=== PATIENT | female | born 1995 | race Caucasian/White ===

== ENCOUNTER 2016-12-11 08:44 | Emergency (ER) | payer SELFPAY ==
[~2016-12-11] VITALS: Ht 167.6 cm; Wt 77.0 kg
[~2016-12-11 08:44] MED LIST: AMOX500T PO; HYDR-3533 PO
[2016-12-11 08:45] VITALS: BP 120/74; PULSE 84; RESP 16; TEMP 98.2; O2SAT 96
[2016-12-11] MEDS ORDERED: SODIUM CHLOR 0.9% 1000 ML INJ 1,000 ML IV SCH (08:54)
[2016-12-11] MEDS ORDERED: ONDANSETRON HCL 4 MG/2 ML VIAL IVP ONE (09:00)
[2016-12-11] MEDS ORDERED: SODIUM CHLORIDE 0.9% FLUSH 5 ML FLUSH IVF PRN (09:00)
--- NOTE | 2016-12-11 09:06 | PD ---
HPI Chief Complaint: GI Complaint Time Seen by Provider: 09:03 Travel History International Travel<30 days: No Contact w/Intl Traveler<30days: No Traveled to known affect area: No History of Present Illness HPI 21-year-old female with history of no significant past medical issues, presents to the ER today with several days history of nausea, vomiting, abdominal discomfort, diarrhea, and hematuria. She denies any unusual vaginal discharge, fevers, or any other symptoms. She states that her boyfriend has similar symptoms as well. Patient has been taking Cipro which was left over from her boyfriend for 2 doses already. Modifying Factors: None Associated Signs & Symptoms: Nausea, vomiting, diarrhea, hematuria Risk Factors: None PFSH Past Medical History Medical History: Denies Significant Hx Respiratory: Yes Tetanus Vaccination: Unknown Influenza Vaccination: No ?: Not LMP: 11/08/17 Past Surgical History Surgical History: No Previous Surgery Social History Alcohol Use: Yes (socially) Tobacco Use: No Substance Use: No Allergies-Medications (Allergen,Severity, Reaction): Coded Allergies: No Known Allergies (Unverified , 12/11/16) Reported Meds & Prescriptions Reported Meds & Active Scripts Active Review of Systems Except as stated in HPI: all other systems reviewed are Neg Physical Exam Narrative GENERAL: Well-nourished, well-developed young female patient in no acute distress. SKIN: Warm and dry. HEAD: Normocephalic. EYES: No scleral icterus. No injection or drainage. NECK: Supple, trachea midline. CARDIOVASCULAR: Regular rate and rhythm without murmurs, gallops, or rubs. RESPIRATORY: Breath sounds equal bilaterally. No accessory muscle use. GASTROINTESTINAL: Abdomen soft, non-tender, nondistended. Benign. MUSCULOSKELETAL: No cyanosis, or edema. BACK: Nontender without obvious deformity. No CVA tenderness. Data Data Last Documented VS Vital Signs Date Time Temp Pulse Resp B/P Pulse Ox O2 Delivery O2 Flow Rate FiO2 12/11/16 09:45 100 Room Air 12/11/16 09:45 60 18 101/60 12/11/16 08:45 98.2 Orders Complete Blood Count With Diff (12/11/16 08:54) Comprehensive Metabolic Panel (12/11/16 08:54) Lipase (12/11/16 08:54) Urinalysis - C+S If Indicated (12/11/16 08:54) Iv Access Insert/Monitor (12/11/16 08:54) Ecg Monitoring (12/11/16 08:54) Oximetry (12/11/16 08:54) Ondansetron Inj (Zofran Inj) (12/11/16 09:00) Sodium Chlor 0.9% 1000 Ml Inj (Ns 1000 M (12/11/16 08:54) Sodium Chloride 0.9% Flush (Ns Flush) (12/11/16 09:00) Ed Urine Pregnancytest Poc (12/11/16 08:54) Labs Laboratory Tests Test 12/11/16 12/11/16 09:05 09:08 Urine Color YELLOW Urine Turbidity CLEAR Urine pH 6.0 Urine Specific [place] 1.026 Urine Protein TRACE mg/dL Urine Glucose (UA) NEG mg/dL Urine Ketones NEG mg/dL Urine Occult Blood MOD Urine Nitrite NEG Urine Bilirubin NEG Urine Urobilinogen LESS THAN 2.0 MG/DL Urine Leukocyte Esterase NEG Urine RBC 19 /hpf Urine WBC 2 /hpf Urine Squamous Epithelial 2 /hpf Cells Urine Mucus FEW /lpf Microscopic Urinalysis Comment CULTURE INDICATED White Blood Count 12.1 TH/MM3 Red Blood Count 4.90 MIL/MM3 Hemoglobin 14.5 GM/DL Hematocrit 43.0 % Mean Corpuscular Volume 87.7 FL Mean Corpuscular Hemoglobin 29.6 PG Mean Corpuscular Hemoglobin 33.7 % Concent Red Cell Distribution Width 12.8 % Platelet Count 231 TH/MM3 Mean Platelet Volume 8.9 FL Neutrophils (%) (Auto) 90.6 % Lymphocytes (%) (Auto) 4.6 % Monocytes (%) (Auto) 4.5 % Eosinophils (%) (Auto) 0.2 % Basophils (%) (Auto) 0.1 % Neutrophils # (Auto) 11.0 TH/MM3 Lymphocytes # (Auto) 0.6 TH/MM3 Monocytes # (Auto) 0.5 TH/MM3 Eosinophils # (Auto) 0.0 TH/MM3 Basophils # (Auto) 0.0 TH/MM3 CBC Comment DIFF FINAL Differential Comment Sodium Level 135 MEQ/L Potassium Level 4.0 MEQ/L Chloride Level 102 MEQ/L Carbon Dioxide Level 24.9 MEQ/L Anion Gap 8 MEQ/L Blood Urea Nitrogen 16 MG/DL Creatinine 0.74 MG/DL Estimat Glomerular Filtration 97 ML/MIN Rate Random Glucose 99 MG/DL Calcium Level 8.6 MG/DL Total Bilirubin 0.8 MG/DL Aspartate Amino Transf 18 U/L (AST/SGOT) Alanine Aminotransferase 25 U/L (ALT/SGPT) Alkaline Phosphatase 92 U/L Total Protein 8.4 GM/DL Albumin 3.9 GM/DL Lipase 134 U/L MDM Medical Decision Making Medical Screen Exam Complete: Yes Emergency Medical Condition: Yes Medical Record Reviewed: Yes Interpretation(s) Laboratory Tests Test 12/11/16 12/11/16 09:05 09:08 Urine Occult Blood MOD (NEG) Urine RBC 19 /hpf (0-3) Urine Mucus FEW /lpf (OCC) White Blood Count 12.1 TH/MM3 (4.0-11.0) Neutrophils (%) (Auto) 90.6 % (16.0-70.0) Lymphocytes (%) (Auto) 4.6 % (9.0-44.0) Neutrophils # (Auto) 11.0 TH/MM3 (1.8-7.7) Lymphocytes # (Auto) 0.6 TH/MM3 (1.0-4.8) Sodium Level 135 MEQ/L (136-145) Total Protein 8.4 GM/DL (6.4-8.2) Differential Diagnosis Nausea, vomiting, diarrhea, urinary symptomsgastroenteritis versus UTI versus dehydration versus metabolic issues Narrative Course Abdomen is benign and I do not suspect an acute intra-abdominal process in this case. Lab work is largely unremarkable. Her urine does have blood in it but no significant signs of UTI. However, considering her symptoms, I suspect that she may be partially treated for UTI, has been on antibiotics for a day already. At this point, I have talked to the patient, I do not think a CAT scan is warranted in this case considering a fairly benign abdomen and no other significant signs of acute processes. My plan would be to release the patient with follow-up to primary care physician, continue treatment with antibiotic. Return for any worsening in symptoms as necessary. The plan has been discussed with patient and she states understanding. Diagnosis Primary Impression: UNSPECIFIED ABDOMINAL PAIN Additional Impression: HEMATURIA, UNSPECIFIED Med/Other Pt SpecificInfo: Prescription(s) given Scripts Ondansetron Odt (Zofran Odt)4 Mg Tab4 Mg SL Q6HR PRN (Nausea/Vomiting) #7 TAB Ref 0 Prov:Malou Botello MD 12/11/16 Ciprofloxacin (Cipro)500 Mg [id number] Mg PO BID 3 Days Ref 0 Prov:Malou Botello MD 12/11/16 Disposition: 01 DISCHARGE HOME Condition: Stable Malou Botello MD Dec 11, 2016 09:06
[2016-12-11 09:17] LABS: BASOPHIL % 0.1 % (0.0-2.0); EOSINOPHIL % 0.2 % (0.0-4.0); HEMO FLAGS DIFF FINAL; LYMPH % 4.6 % (9.0-44.0); LYMPHOCYTE # 0.6 TH/MM3 (1.0-4.8); MEAN CELL VOLUME 87.7 FL (80.0-100.0); MEAN CORPUSCULAR HEMOGLOBIN 29.6 PG (27.0-34.0); MEAN CORPUSCULAR HGB CONC 33.7 % (32.0-36.0); MONO % 4.5 % (0.0-8.0); NEUT % 90.6 % (16.0-70.0); PLATELET COUNT 231 TH/MM3 (150-450); RED CELL DISTRIBUTION WIDTH 12.8 % (11.6-17.2); WHITE BLOOD COUNT 12.1 TH/MM3 (4.0-11.0)
[2016-12-11 09:30] LABS: BLOOD, URINE MOD (NEG); GLUCOSE,URINE NEG (NEG); KETONE, URINE NEG (NEG); MUCUS URINE FEW /lpf (OCC); NITRITE,URINE NEG (NEG); SQUAMOUS EPITHELIAL CELL URINE 2 /hpf (0-5); URINE COLOR YELLOW (YELLW/STRAW)
[2016-12-11 09:31] LABS: COMMENT (UR) CULTURE INDICATED; CULTURE IF INDICATED CULTURE INDICATED
[2016-12-11 09:45] VITALS: BP 101/60; PULSE 60; RESP 18; O2SAT 100
[2016-12-11 09:47] LABS: ALKALINE PHOSPHATASE 92 U/L (45-117); ALT (GPT) 25 U/L (10-53); ANION GAP 8 MEQ/L (5-15); AST (GOT) 18 U/L (15-37); BICARBONATE 24.9 MEQ/L (21.0-32.0); BLOOD UREA NITROGEN 16 MG/DL (7-18); CHLORIDE 102 MEQ/L (98-107); GLOMERULAR FILTRATION RATE 97 ML/MIN (>89); SODIUM (NA) 135 MEQ/L (136-145); TOTAL BILIRUBIN ADULT 0.8 MG/DL (0.2-1.0)
[2016-12-11] MEDS ORDERED: CIPR-9 PO (09:55)
[2016-12-11] MEDS ORDERED: ZOFR4TAB3 SL (09:55)
[2016-12-11 10:14] VITALS: BP 103/62
== END 2016-12-11 10:24 | disposition home or self-care (01) ==
LOC: NEPC 08:44
DX: R10.9 Unspecified abdominal pain (principal); R31.9 Hematuria, unspecified; R11.2 Nausea with vomiting, unspecified; R19.7 Diarrhea, unspecified
CPT/HCPCS: 80053; 81001; 83690; 84703; 85025; 96374; 99284; J2405; J7030